=== PATIENT | male | born 1985 | race Asian ===

== ENCOUNTER 2017-02-14 16:02 | Emergency (ER) | payer SELFPAY ==
[2017-02-14 16:11] VITALS: BP 122/61; PULSE 70; RESP 15; TEMP 98.6; O2SAT 97
[2017-02-14] MEDS ORDERED: AUGM875T3 PO (16:22)
[2017-02-14] MEDS ORDERED: HYDR-3533 PO (16:22)
[2017-02-14] MEDS ORDERED: IBUP800T23 PO (16:22)
[2017-02-14] MEDS ORDERED: ACETAMINOPHEN/HYDROcodone 325 MG/5 MG TAB PO ONE (16:30)
[2017-02-14] MEDS ORDERED: TETANUS/DIPHTHERIA TOXOID ADULT 0.5 ML VIAL IM ONE (16:30)
[2017-02-14] MEDS ORDERED: AMOXICILLIN/CLAVULANATE K 875 MG TAB PO ONE (16:30)
[2017-02-14] MEDS ORDERED: IBUPROFEN 800 MG TAB PO ONE (16:30)
--- NOTE | 2017-02-14 16:39 | PD ---
HPI Chief Complaint: Bite or Sting Time Seen by Provider: 16:17 Travel History International Travel<30 days: No Contact w/Intl Traveler<30days: No Traveled to known affect area: No History of Present Illness HPI 30-year-old male that presents to the ED for evaluation of dog bite to the right hand. Per patient he was bit by one of his friend's dog. Per patient he did was put him and he been. Per patient the second time this dog has bitten. Patient has multiple puncture wounds to the right hand. Mostly on the dorsal as well as the plantar aspect and the 15th and index digits. Most of them are very superficial and puncture wounds. The one on the dorsal hand is a little bit bigger less than 1 cm in diameter. Patient able to move all fingers. Per patient his pain is 10 out of 10. Patient brings information about the dog's immunizations and they appear to be up-to-date. No risk for rabies. Patient denies any other medical issues. Patient denies any allergies. He has not taken anything for this. Injury occurred less than an hour ago. [facility] Social History Alcohol Use: No Tobacco Use: No Substance Use: No Allergies-Medications (Allergen,Severity, Reaction): Coded Allergies: No Known Allergies (Unverified , 02/14/17) Reported Meds & Prescriptions Reported Meds & Active Scripts Active Ibuprofen 800 Mg Tab 800 Mg PO Q6HR PRN Lortab (Hydrocodone-Acetaminophen) 5-325 Mg Tab 1 Tab PO Q6H PRN Augmentin (Amoxicillin-Clavulanate) 875-125 Mg Tab 1 Tab PO BID 10 Days Review of Systems Except as stated in HPI: all other systems reviewed are Neg Physical Exam Narrative GENERAL: SKIN: Warm and dry. HEAD: Atraumatic. Normocephalic. EYES: Pupils equal and round. No scleral icterus. No injection or drainage. ENT: No nasal bleeding or discharge. Mucous membranes pink and moist. Tongue is midline. No uvula deviation. NECK: Trachea midline. No JVD. CARDIOVASCULAR: Regular rate and rhythm. No murmurs, S3, S4. RESPIRATORY: No accessory muscle use. Clear to auscultation. Breath sounds equal bilaterally. GASTROINTESTINAL: Abdomen soft, non-tender, nondistended. Hepatic and splenic margins not palpable. MUSCULOSKELETAL: Extremities without clubbing, cyanosis, or edema. No obvious deformities. Full range of motion of all fingers of the right hand. Patient does have multiple puncture wounds to the right hand. Patient has a puncture wound to the dorsal aspect of the hand which is about half a centimeter in diameter. Very well approximated. Minimal bleeding noted. Patient also has a puncture wound to the plantar aspect of the hand on the mid part of the hand. Less than 0.25 cm, 2 other bite godfrey noted on the index and middle finger which are less than 0.25 cm in diameter very well approximated. Minimal bleeding noted. No obvious sign of tendon, vessel, bony damage. Patient able to move the fingers fully. Some erythema noted dorsal aspect of the right hand. NEUROLOGICAL: Awake and alert. No obvious cranial nerve deficits. Motor grossly within normal limits. Five out of 5 muscle strength in the arms and legs. Normal speech. PSYCHIATRIC: Appropriate mood and affect; insight and judgment normal. Data Data Last Documented VS Vital Signs Date Time Temp Pulse Resp B/P (MAP) Pulse Ox O2 Delivery O2 Flow Rate FiO2 02/14/17 16:11 98.6 70 15 122/61 (81) 97 Orders Orders Wound Care (02/14/17 16:20) Acetamin-Hydrocod 325-5 Mg ([place] 5-325 (02/14/17 16:30) Ibuprofen (Motrin) (02/14/17 16:30) Tetanus/Diphtheria Tox Adult (Tetanus/Di (02/14/17 16:30) Amoxicil-Clavulanate (Augmentin) (02/14/17 16:30) MDM Medical Decision Making Medical Screen Exam Complete: Yes Emergency Medical Condition: Yes Medical Record Reviewed: Yes Differential Diagnosis Animal bite versus bug bite versus laceration versus abrasion versus puncture wound Narrative Course 31-year-old male that presents to the ED for evaluation of dog bite to the right hand. Patient was properly examined and was found to have signs and symptoms consistent with appears to be dogbite. 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 No rabies necessary at this time. Patient was given tetanus booster. At this time I recommend no suturing secondary to this pain dogbite wounds. I told the patient that this unfortunately will have to heal by secondary intention. Most of them are very well approximated and should heal fine. Patient will be started on Augmentin for antibiotic prophylactic. Patient was given a prescription for this. Patient was given Lortab, ibuprofen, Augmentin here as well as prescriptions for this. Patient was endorsed wound care. Told to follow with PCP. Ice to the area. See ED worsening symptoms. Diagnosis Primary Impression: Dog bite of right hand Qualified Codes: S61.451A - Open bite of right hand, initial encounter; W54.0XXA - Bitten by dog, initial encounter Patient Instructions: General Instructions Additional Instructions: Take medications as prescribed. Follow-up with PCP. See ED for any worsening symptoms. Do not drink or drive while taking pain medication. Apply ice or heat as needed for pain Change dressings daily. Avoid swimming but you may wash your hands with soap and water. Apply antibiotic ointment into the wounds. Med/Other Pt SpecificInfo: Prescription(s) given Scripts Ibuprofen (Ibuprofen) 800 Mg Tab 800 MG PO Q6HR Y for PAIN, #40 TAB 0 Refills Prov: Ron Grimm MD 02/14/17 Hydrocodone-Acetaminophen (Lortab) 5-325 Mg Tab 1 TAB PO Q6H Y for PAIN, #12 TAB 0 Refills Prov: Ron Grimm MD 02/14/17 Amoxicillin-Clavulanate (Augmentin) 875-125 Mg Tab 1 TAB PO BID for Infection for 10 Days, TAB 0 Refills Prov: Ron Grimm MD 02/14/17 Disposition: 01 DISCHARGE HOME Condition: Stable Elliot Bhakta Feb 14, 2017 16:39
== END 2017-02-14 17:25 | disposition home or self-care (01) ==
LOC: PHEFT 16:02
DX: S61.451A Open bite of right hand, initial encounter (principal); W54.0XXA Bitten by dog, initial encounter
CPT/HCPCS: 90471; 90714